=== PATIENT | female | born 1940 | race Caucasian/White ===

== ENCOUNTER 2021-09-16 17:34 | Emergency (ER) | payer MEDICARE, OTHER, SELFPAY ==
[2021-09-16 17:36] VITALS: BP 185/77; PULSE 95; RESP 20; TEMP 36.7; O2SAT 97; BMI 34.0
--- NOTE | 2021-09-16 17:48 | EDS_ITS ---
HPI History of Present Illness Chief Complaint: Upper Extremity Injury Informant: patient, spouse/S.O. and EMS Onset/Context/Timing Onset: Today (JPTA) Context: Sudden Onset Timing: Continuous Quality of Pain: Aching Location: left upper ext Current Severity: Moderate Maximum Severity: Severe Worsened by: movement Relieved by: remaining still, fentanyl Associated Symptoms Associated Symptoms: Positive for Loss of Funtion (LUE); Negative for Parasthesia or Weakness Narrative Narrative: Patient was outside of a store and somehow fell on the sidewalk without any prodromal symptoms, trying to catch her self with her left hand, injured her left upper extremity and states she also hit her forehead on the sidewalk where the side of the building she is not sure. No loss of consciousness or amnesia. States she is also having some rib pain but denies any dyspnea. No neck or back pain. No lower extremity pain but she feels like she scraped her knees. Takes no anticoagulants. PFSH PFS Medical History (Updated 09/16/21 @ 22:[address] Hussain Pedraza MD) Fall Home Medications levothyroxine 125 mcg tablet (Synthroid) 1 tab PO DAILY 09/16/21 [History Last Taken Unknown] oxycodone-acetaminophen 5 mg-325 mg tablet 1 tab PO Q6H PRN PRN Pain 4 days #16 TABLETS 09/16/21 [Rx Last Taken Unknown] Allergy/AdvReac Type Severity Reaction Status Date / Time Penicillins AdvReac Other Verified 09/16/21 17:39 Surgical History (Updated 09/16/21 @ 18:11 by Leonila Barrios) Hx of thyroidectomy Social History Smoking Status: Never smoker ROS ROS ED Constitutional Constitutional ED: Denies chills or fever(s) Eyes Eyes: Denies change in vision or diplopia ENT ENT ED: Denies ear pain, epistaxis, facial pain or rhinorrhea Cardiovascular Cardiovascular: Reports other Details: Rib pain see HPI ; Denies chest pain or palpitations Respiratory/Chest Respiratory/Chest: Denies cough or dyspnea Gastrointestinal Gastrointestinal: Denies diarrhea, melena, nausea or vomiting Genitourinary Genitourinary ED: Denies dysuria or hematuria Musculoskeletal Musculoskeletal: Reports as per HPI and extremity pain; Denies back pain or neck pain Integumentary Denies abscess, Abrasions, laceration or rash Neurologic Neurologic: Denies confusion, headache(s), paresthesias or weakness EXAM Physical Exam Const Vital Signs: 09/16/21 17:36 Temperature 98.1 F Temperature Source Temporal Pulse Rate 95 Respiratory Rate 20 H Blood Pressure 185/77 H Blood Pressure Mean 113 Pulse Ox 97 Oxygen Delivery Method Room Air Positive well nourished and well developed General Appearance ED: well developed and NAD HEENT Reports TM's clear and nasal mucous membranes and turbinates normal normocephalic and atraumatic; Negative for tenderness Face and Sinus: Negative for facial tenderness Tympanic Membrane ED: Yes TM's clear Eyes PERRL and EOMs intact bilaterally Visual Acuity: other Other Details: no entrapment or pain with extraocular movements Neck full ROM and supple General: Negative for tenderness Chest Wall inspection of chest normal Chest Narrative: Tender mostly in the right lower anterolateral rib cage. No crepitance, subcutaneous emphysema, or asymmetric breath sounds. Chest: symmetrical chest wall rise and tenderness; Negative for crepitus Resp normal respiratory effort and clear to auscultation bilaterally Resp Narrative: Equal breath sounds bilaterally. No splinting on deep inspiration. Percussion: other equal BS bilat Cardio no murmurs Rate: regular rate Rhythm: regular rhythm GI soft to palpation GI Narrative: Tender left upper quadrant moderately. Some involuntary guarding. No rebound tenderness. No other areas of tenderness. Normal inspection. Back/Spine normal ROM Cervical Spine: Negative for cervical spine tenderness Thoracic Spine / Upper Back: Negative for thoracic spinal tenderness Lumbar Spine / Lower Back: Negative for lumbar spinal tenderness Extremity Negative for full ROM Extremity Narrative: Holding left upper extremity and external rotation unable to move. Strong 2+/4 radial pulse. Abrasion to the volar aspect of the ulnar wrist which is nontender. Tenderness throughout the humerus down to the medial epicondyle, the acromioclavicular joint and acromion and clavicle are all nontender. Swelling in the mid humerus, no gross deformities. Full range of motion throughout all other joints including both lower extremities and the right upper extremity without any difficulty or bony tenderness. There are abrasions anterior both knees. General Extremety ED: Yes tenderness Neuro oriented x3, CN's II-XII intact bilaterally, moves all extremities, no focal motor deficits and no sensory deficits noted [place] Coma Scale: document GCS findings Spontaneous Obeys Commands Oriented 15 Sensorium / Orientation: awake and alert Psych mental status grossly normal and thought process normal Skin Skin Narrative: Abrasions to both anterior knees very superficial, also abrasion to the left wrist see above. Lesions: no lesions Rashes: no rashes MDM MDM MDM Narrative Medical decision making narrative: Patient with what appears to be mechanical fall, she has evidence of injury to multiple areas: Left shoulder, rib cage, upper abdomen, head, her knees are benign and she has but a scrape on her right elbow. Chest x-ray does not show any evidence of pneumothorax or other obvious intrathoracic injury, CT of the abdomen/pelvis and head show no acute traumatic injury, incidentals are noted. X-rays of the left humerus did not show any obvious fracture, just healed fractures from remote. On reexamination, she is holding her left upper extremity in neutral position now, however with any bit of internal or external rotation she is in immense pain, she states that she just cannot move it. She is mildly tender in the subacromial fossa posteriorly when not moving. In order to make sure the patient did not have a posterior dislocation in this context, I felt a CT of the shoulder was warranted. It does not show dislocation, but it does show comminuted proximal humerus fracture with no displacement of the parts, which did not show on the x-ray because of the remotely healed fractures. This does explain the patient's pain. I offered admission, she declines and prefers to go home with family, with prescription for analgesics. Family was present during this discussion they are comfortable with this plan, she was able to ambulate, we cleansed and dressed her abrasions/wounds, and she will be discharged home to follow-up with orthopedics as an outpatient with a sling in her left upper extremity. Discharge Plan Triage Chief Complaint: Upper Extremity Injury ED Provider: Hussain Pedraza Dx/Rx/DC Orders Clinical Impression: Closed fracture of left proximal humerus, Abrasion, multiple sites, Fall from slip, trip, or stumble, Chest wall contusion, Abdominal wall contusion, Closed head injury without loss of consciousness Instructions: ED Fracture, Shoulder, ED Sling Prescriptions: New oxycodone-acetaminophen [oxycodone-acetaminophen] 5-325 mg tablet 1 tab PO Q6H PRN PRN (Reason: Pain) 4 Days Qty: 16 0RF No Action levothyroxine [Synthroid] 125 mcg tablet 1 tab PO DAILY Label Comments: TAKE 1 TABLET BY MOUTH ONCE DAILY Primary Care Provider: Myrna Quigley Referrals: Myrna Quigley MD [Primary Care Provider] - Tio Harkins DO [STAFF PHYSICIAN] - (call for appt to be seen within next 1- 2 weeks) Disposition Disposition: Home, Self Care
[2021-09-16] MEDS: Ondansetron 4 MG/2 ML Vial IV (18:04)
[2021-09-16] MEDS: Morphine 4 MG/ML Syringe IV ×2 (18:04→22:54)
[2021-09-16 18:39] LABS: Absolute Lymphocyte Count 2.32 X10^3/uL (0.83-4.51); Absolute Neutrophil Count 6.2 X10^3/uL (2.0-7.7); Eosinophil# 0.18 X10^3/uL; Eosinophils% 1.9 % (0-5); Hematocrit 43.3 % (37-47); Hemoglobin 13.7 g/dL (12.0-15.0); Lymphocyte # 2.32 X10^3/ul (0.83-4.51); Lymphocyte % 24.3 % (19-41); Mean Corp Hgb Conc 31.6 g/dL (32-36); Mean Corpuscular Hgb 30.1 pg (27.0-32.0); Mean Corpuscular Volume 95.2 fL (81-99); Mean Platelet Vol. 10.1 fl (6.2-12.0); Monocyte# 0.65 X10^3/uL; Monocyte% 6.8 % (0-10); NRBC Flagged by Analyzer 0 % (0-5); Neutrophil # 6.21 X10^3/uL (2.7-7.7); Neutrophil % 65.3 % (47-70); Platelet Count 336 K/mm3 (150-450); RBC Distribution Width CV 13.5 % (11.6-14.6); Red Blood Count 4.55 M/mm3 (4.2-5.4); White Blood Count 9.5 K/mm3 (4.4-11.0)
[2021-09-16 18:53] LABS: Anion Gap 4 (5-15); BUN 22 mg/dL (7-18); BUN/Creat Ratio 17.9 RATIO (10-20); Calcium,Total 9.7 mg/dL (8.5-10.1); Chloride 106 mmol/L (98-107); Creatinine, Serum 1.23 mg/dL (0.55-1.02); EST Glomerular Filtration Rate 45 mL/min (>60); Est Glom Filt Rate - Afr Amer 54 mL/min (>60); Estimated Creatinine Clearance 27.07 ml/min; Glucose 112 mg/dL (74-106); Potassium 3.8 mmol/L (3.5-5.1); Sodium Level 138 mmol/L (136-145)
[2021-09-16 19:02] VITALS: BP 163/77; PULSE 88; RESP 16; O2SAT 96
[2021-09-16] MEDS: HYDROmorphone 1 MG/ML Syringe IV (19:03)
--- NOTE | 2021-09-16 19:26 | CT_ITS ---
STUDY: CT ABDOMEN AND PELVIS WITH CONTRAST REASON FOR EXAM: Female, 81 years old. fall, trauma, pain LUQ RADIATION DOSAGE (If Supplied By Facility): CTDIvol = ( 17.07 ) mGy, DLP = ( 1241.78 ) mGycm TECHNIQUE: Transaxial images were obtained from the dome of the diaphragm to the symphysis pubis without oral contrast. IV 100mL Isovue-300 was administered. Sagittal and coronal images were reconstructed. Individualized dose optimization techniques were used for this CT. COMPARISON: None. FINDINGS: There is mild atelectasis within the dependent portion of the lungs bilaterally.. Heart size is normal. There is multifocal coronary artery calcification Normal liver. Normal gallbladder and extrahepatic biliary system. Normal spleen. Normal pancreas. Normal bilateral adrenal glands. Normal right kidney. Tiny nonobstructing left renal calculus. There is a large cyst in the upper pole which will not require additional imaging Normal visualized stomach. Normal small intestine. Diverticular disease of the sigmoid colon without evidence for acute diverticulitis. No evidence for acute appendicitis Mild atherosclerotic changes of the aorta without evidence for aneurysm. Normal inferior vena cava. Normal retroperitoneum. Normal urinary bladder. Normal abdominal wall. Lumbar spine demonstrates minor spondylosis CT/Abdomen/Pelvis W IV Cont ONLY IMPRESSION: Mild atelectasis within the dependent portion of the lungs. Left nephrolithiasis and large left renal cyst. Diverticular disease of sigmoid colon colon without acute inflammation No acute abnormality Electronically Signed: Chema Douglas MD at 19:57 EDT ,
--- NOTE | 2021-09-16 19:26 | CT_ITS ---
STUDY: CT BRAIN WITHOUT CONTRAST REASON FOR EXAM: Female, 81 years old. trauma RADIATION DOSAGE (If Supplied By Facility): CTDIvol = ( 44.99 ) mGy, DLP = ( 829.85 ) mGycm TECHNIQUE: Transaxial CT imaging of the brain was performed without administration of intravenous contrast material. Individualized dose optimization techniques were used for this CT. COMPARISON: No relevant priors. FINDINGS: Normal soft tissue structures. Normal calvarium. Mild atrophy and periventricular white matter ischemic changes.. Normal basal ganglia and thalami. Normal brainstem. Normal cerebellum. There is no intracranial hemorrhage. There are no findings of an acute ischemic infarction. Post surgical changes of the orbits. Normal visualized paranasal sinuses. CT/Brain/Head without Contrast IMPRESSION: Mild atrophy and periventricular white matter ischemic changes. No evidence for acute intracranial hemorrhage Electronically Signed: Chema Douglas MD at 19:49 EDT ,
--- NOTE | 2021-09-16 19:38 | RAD_ITS ---
STUDY: X-RAY CHEST REASON FOR EXAM: Female, 81 years old. fall/injury TECHNIQUE: AP portable COMPARISON: None. FINDINGS: Elevated right hemidiaphragm and mild subsegmental atelectasis at the right base. There is no demonstrated pleural abnormality. Heart is mildly enlarged Normal mediastinum and wesley. Normal visualized pulmonary arteries. Tortuous aortic arch and descending thoracic aorta. Dorsal spine and shoulders demonstrate degenerative change Normal visualized ribs and, clavicles. Posttraumatic deformity of left shoulder There is no demonstrated abnormality of the visualized soft tissue structures of the upper abdomen. RAD/Chest 1 View (Portable) IMPRESSION: ASHD. No acute cardiopulmonary pathology Electronically Signed: Chema Douglas MD at 20:17 EDT ,
--- NOTE | 2021-09-16 19:38 | RAD_ITS ---
STUDY: X-RAY - LEFT HUMERUS REASON FOR EXAM: Female, 81 years old. fall/trauma TECHNIQUE: 2 view(s) of the humerus. COMPARISON: None. FINDINGS: Old healed fracture of the proximal humeral shaft.. There is no demonstrated fracture or osseous destructive process. There is no demonstrated soft tissue abnormality. RAD/Humerus min 2 Views IMPRESSION: Old healed fracture of the proximal humeral shaft. No acute fracture or dislocation Electronically Signed: Chema Douglas MD at 20:19 EDT ,
--- NOTE | 2021-09-16 20:58 | CT_ITS ---
CT of the left shoulder INDICATION: Shoulder pain following injury TECHNIQUE: CT of the left shoulder was performed in the axial projection without contrast followed by sagittal and coronal reconstructions. Radiographic technique was optimized to limit patient radiation dose. DLP was 731.87 FINDINGS: There is normal tibial fracture of the proximal femoral shaft however, there is mildly impacted comminuted fracture of the humeral neck and head with mild separation of fracture fragments. There is associated mild cortical avulsion of the greater tuberosity with minor separation of fracture fragments. The glenohumeral joint space is well-maintained. CT/Extremity Upper without Contra IMPRESSION: Old healed fracture of the proximal left humeral shaft Acute minimally impacted fracture of the humeral neck and head very mild cortical avulsion of the greater tuberosity and separation of fracture fragments.. Electronically Signed: Chema Douglas MD at 21:50 EDT ,
[2021-09-16 23:23] VITALS: BP 151/83; PULSE 98; RESP 18
== END 2021-09-16 23:25 | disposition home or self-care (01) ==
PROVIDERS: Emergency Provider Emergency Medicine; Visit Provider Emergency Medicine
DX: S42.202A Unspecified fracture of upper end of left humerus, initial encounter for closed fracture (principal); S50.311A Abrasion of right elbow, initial encounter; R07.81 Pleurodynia; S09.90XA Unspecified injury of head, initial encounter; S20.20XA Contusion of thorax, unspecified, initial encounter; S30.1XXA Contusion of abdominal wall, initial encounter; W10.1XXA Fall (on)(from) sidewalk curb, initial encounter; Y92.512 Supermarket, store or market as the place of occurrence of the external cause
CPT/HCPCS: 70450; 71045; 73060; 73200; 74177; 80048; 85025; 96374; 96375; 96376; 99285; Q9967; A4216; J2405